=== PATIENT | female | born 1990 | race Asian ===

== ENCOUNTER 2023-01-22 08:19 | Emergency (ER) | payer OTHER, SELFPAY ==
[2023-01-22 08:28] VITALS: BP 129/74; PULSE 64; RESP 19; TEMP 36.7; O2SAT 99; BMI 28.3
--- NOTE | 2023-01-22 09:14 | ED.GENADULT ---
HPI - General Adult General Chief complaint: Eye Problems Stated complaint: rt eye swelling and pain Time Seen by Provider: 01/22/23 08:47 Source: patient Mode of arrival: Ambulatory History of Present Illness HPI narrative: Patient is a 32-year-old female who is here for evaluation of redness and discomfort to the right upper eyelid. She says she woke up yesterday morning having some irritation in this area. She took some antihistamines yesterday with minimal if any improvement. This morning she woke up and was much worse. She has no vision changes and no actual eyeball complaints it is the discomfort in her upper eyelid. She does not wear glasses or contacts. Has had a stye removed otherwise no prior eye surgeries. Has not taken any medications today. She does have an allergy to shellfish. She did eat some shellfish yesterday but she states that her shellfish allergies normally body hives and not necessarily hives associated with the eye. Related Data Previous Rx's Medication Instructions Recorded clindamycin HCl 300 mg capsule 300 mg PO QID 7 days #28 caps 01/22/23 Allergies Allergy/AdvReac Type Severity Reaction Status Date / Time Penicillins Allergy Unknown Rash Verified 01/22/23 08:29 shrimp Allergy Unknown Rash Verified 01/22/23 08:30 Review of Systems Constitutional Constitutional: Reports system reviewed and no additional complaints, except as documented Eyes Eyes: Reports system reviewed and no additional complaints, except as documented ENT Ears, Nose, Mouth, and Throat: Reports system reviewed and no additional complaints, except as documented Respiratory Respiratory: Reports system reviewed and no additional complaints, except as documented Integumentary/Breasts Skin/Breast: Reports system reviewed and no additional complaints, except as documented Allergic/Immunologic Allergic/Immunologic: Reports system reviewed and no additional complaints, except as documented Patient History Social History Smoking Status: Never smoker Smoking Status: Never smoker alcohol intake frequency: a few times a month Alcohol type: wine Substance Use Type: does not use Exam Initial Vital Signs Initial Vital Signs: Vital Signs Temperature 98.1 F 01/22/23 08:28 Pulse Rate 64 01/22/23 08:28 Respiratory Rate 19 01/22/23 08:28 Blood Pressure 129/74 01/22/23 08:28 Pulse Oximetry 99 08/06/23 08:28 Oxygen Delivery Method Room Air 01/22/23 08:28 [facility] Head: normal to inspection and normocephalic Eyes Pupils: PERRL EOM: EOM intact bilaterally Other: Patient with redness and swelling to the right upper eyelid. The right lower that is unremarkable. Left eye is unremarkable. No photophobia. Sclera is unremarkable. Conjunctiva is unremarkable. No foreign body noted. Skin Other: Redness and swelling to the right upper eyelid Neuro General: patient alert and patient awake Course Orders Ordered: Discontinued Medications Fluorescein Sodium (Fluorescein 1 Mg Strip) 1 mg EYE-BOTH NOW ONE Stop: 01/22/23 08:48 Last Admin: 01/22/23 08:59 Dose: 1 mg Documented By: RB Proparacaine HCl (Proparacaine 0.5% Ophth Karyn) 1 drops EYE-RIGHT NOW ONE Stop: 01/22/23 08:48 Last Admin: 01/22/23 08:58 Dose: 1 drops Documented By: RB Vital Signs Vital signs: Vital Signs - 8 hr 01/22/23 08:28 Temperature 98.1 F Pulse Rate 64 Respiratory Rate 19 Blood Pressure 129/74 Pulse Oximetry 99 Oxygen Delivery Method Room Air Medical Decision Making MDM Narrative Medical decision making narrative: Her symptoms today are clearly isolated to the right upper eyelid. Her sclera and conjunctiva and pupils are unremarkable. Unsure as to whether not this is an allergic reaction or potentially the beginnings of a periorbital cellulitis. She is no proptosis. Plan to be is to have her continue with the antihistamines. We will also start her on a course of antibiotics. She was given return precautions. She expressed understanding and agreement. Discharge Plan Departure Patient Disposition: Home Clinical Impression: Periorbital cellulitis Instructions: DI for Cellulitis -- Adult Activity Restrictions/Additional Instructions: I do recommend that you continue with the daily antihistamine such as Claritin or Zyrtec. You can purchase this [id number]. You can also take Benadryl. Like we discussed you can also use cool/warm compresses. Start taking the antibiotics as directed. Return to the emergency department for new symptoms. Prescriptions: New clindamycin HCl 300 mg capsule 300 mg PO QID 7 Days Qty: 28 0RF Referrals: ProviderWendy [Primary Care Provider] - Stand Alone Forms: Patient Portal/API
--- NOTE | 2023-01-22 09:16 | PC.NURSE ---
This RN pulled prescribed medications for provider assessment. Provider assessed patient and decided not to use the mediations. Medications returned to the [facility].
== END 2023-01-22 09:23 | disposition home or self-care (01) ==
PROVIDERS: Emergency Provider Emergency Medicine
DX: L03.213 Periorbital cellulitis (principal)
CPT/HCPCS: 99281; 99283